=== PATIENT | female | born 1990 | race Asian ===

== ENCOUNTER 2020-11-24 00:45 | Observation (INO) | payer BC, OTHER ==
[~2020-11-24] VITALS: Ht 165.1 cm; Wt 71.2 kg
[2020-11-24] MEDS ORDERED: TEMAZEPAM 15 MG CAPSULE PO PRN (02:15)
== END 2020-11-24 08:00 | disposition home or self-care (01) ==
LOC: SPU 00:45
PROVIDERS: ADMIT Obstetrics & Gynecology; ATTEND Obstetrics & Gynecology
DX: O42.92 Full-term premature rupture of membranes, unspecified as to length of time between rupture and onset of labor (principal); O36.8130 Decreased fetal movements, third trimester, not applicable or unspecified; Z3A.37 37 weeks gestation of pregnancy
CPT/HCPCS: G0378

== ENCOUNTER 2020-12-02 10:13 | Inpatient (IN) | payer OTHER ==
[~2020-12-02] VITALS: Ht 165.1 cm; Wt 73.5 kg
[2020-12-02] MEDS ORDERED: AMPICILLIN SODIUM 2 GM VIAL ONE (11:06)
[2020-12-02] MEDS ORDERED: TERBUTALINE SULFATE 1 MG/ML VIAL SUBCUT ONE (11:15)
[2020-12-02] MEDS ORDERED: AMPICILLIN SODIUM 2 GM in NS 100 ML IV ONE (11:15)
[2020-12-02] MEDS ORDERED: LR 1,000 ML IV ONE (11:15)
[2020-12-02] MEDS ORDERED: LR 1,000 ML IV SCH (11:15)
[2020-12-02] MEDS ORDERED: OXYTOCIN/0.9 % SODIUM CHLORIDE 1,000 ML IV SCH ×2 (11:15→18:45)
[2020-12-02 11:45] LABS: BASOPHILS % (AUTO) 0.2 % (0.0-2.0); EOSINOPHILS # (AUTO) 0.1 K/uL (0.0-0.4); EOSINOPHILS % (AUTO) 0.7 % (0.0-4.0); HEMATOCRIT 36.4 % (36-48); HEMOGLOBIN 11.9 g/dL (12.0-16.0); LYMPHOCYTES # (AUTO) 1.9 K/uL (1.0-5.5); LYMPHOCYTES % (AUTO) 19.1 % (20.5-51.5); MEAN CORPUSCULAR HEMOGLOBIN 29 pg (27-31); MEAN CORPUSCULAR HGB CONC 33 % (32-36); MEAN CORPUSCULAR VOLUME 90 fL (79.0-98.0); MONOCYTES # (AUTO) 0.7 K/uL (0.0-1.0); MONOCYTES % (AUTO) 6.5 % (1.7-9.3); NEUTROPHILS # (AUTO) 7.4 K/uL (1.8-7.7); NEUTROPHILS % (AUTO) 73.5 % (40.0-70.0); PLATELET COUNT (AUTO) 241 K/uL (130-430); RED BLOOD CELL COUNT(AUTO) 4.06 MIL/uL (4.2-6.2); RED CELL DISTRIBUTION WIDTH 13.5 % (9.0-15.0); WHITE BLOOD COUNT (AUTO) 10.1 K/uL (4.8-10.8)
[2020-12-02] MEDS ORDERED: ROPIVACAINE HCL/PF 0.2% 200 ML ONE ×2 (14:13→15:11)
[2020-12-02] MEDS ORDERED: fentaNYL CITRATE/PF 100 MCG/2 ML AMP ONE ×2 (14:13→15:10)
[2020-12-02] MEDS ORDERED: AMPICILLIN SODIUM 1 GM in NS 50 ML IV SCH (15:15)
[2020-12-02] MEDS ORDERED: HYDROcodone/ACETAMIN 5-325 MG TAB (NORCO/ VICODIN) PO PRN ×2 (18:45)
[2020-12-02] MEDS ORDERED: TEMAZEPAM 15 MG CAPSULE PO PRN (18:45)
[2020-12-02] MEDS ORDERED: DERMOPLAST SPRAY TP PRN (18:45)
[2020-12-02] MEDS ORDERED: ANUSOL 1 EA SUPP.RECT (PREPARATION H) RC PRN (18:45)
[2020-12-02] MEDS ORDERED: LANOLIN 7 GM OINT. TP PRN (18:45)
[2020-12-02] MEDS ORDERED: METHYLERGONOVINE MALEATE 0.2 MG TABLET PO PRN (18:45)
[2020-12-02] MEDS ORDERED: WITCH HAZEL LEAF 1 MED.PAD MED.PAD TP PRN (18:45)
[2020-12-02] MEDS ORDERED: MEASLES,MUMPS&RUBELLA VACC/PF 12500 UNIT/0.5 ML VIAL SUBQ PRN (18:45)
[2020-12-02] MEDS ORDERED: SENNOSIDES/DOCUSATE SODIUM 1 TAB TABLET(SENOKOT-S) PO PRN (18:45)
[2020-12-02] MEDS ORDERED: ACETAMINOPHEN 325 MG TABLET PO PRN (18:45)
[2020-12-02] MEDS ORDERED: OXYTOCIN/0.9 % SODIUM CHLORIDE 1,000 ML IV ONE (18:45)
[2020-12-02] MEDS ORDERED: HYDROCORTISONE 0.5% CREAM 28.4 GM CREAM.GM. TP PRN (18:45)
[2020-12-02] MEDS ORDERED: RHO(D) IMMUNE GLOBULIN/MALTOSE 1500 UNITS/1.3 ML (WINHRO) IM PRN (18:45)
[2020-12-02] MEDS ORDERED: ONDANSETRON HCL 4 MG/2 ML VIAL IVP PRN ×2 (20:30)
[2020-12-02] MEDS: IBUPROFEN 600 MG TABLET PO SCH (23:39)
[2020-12-02] MEDS: DOCUSATE SODIUM 100 MG CAPSULE PO PRN (23:40)
[2020-12-03] MEDS: IBUPROFEN 600 MG TABLET PO SCH ×3 (05:06→18:08)
[2020-12-03] MEDS: DOCUSATE SODIUM 100 MG CAPSULE PO PRN (05:06)
[2020-12-03 07:14] LABS: HEMATOCRIT 35.5 % (36-48)
[2020-12-03 18:21] VITALS: BP_SYST 112
== END 2020-12-03 19:10 | disposition home or self-care (01) | DRG 807 ==
LOC: SPU 10:13
PROVIDERS: ADMIT Obstetrics & Gynecology; ATTEND Obstetrics & Gynecology
PROC: 10E0XZZ Delivery of Products of Conception, External Approach (ICD-10-PCS; principal; 2020-12-02)
PROC: 3E033VJ Introduction of Other Hormone into Peripheral Vein, Percutaneous Approach (ICD-10-PCS; 2020-12-02)
PROC: 3E0R3BZ Introduction of Anesthetic Agent into Spinal Canal, Percutaneous Approach (ICD-10-PCS; 2020-12-02)
PROC: 00HU33Z Insertion of Infusion Device into Spinal Canal, Percutaneous Approach (ICD-10-PCS; 2020-12-02)
DX: O69.81X0 Labor and delivery complicated by cord around neck, without compression, not applicable or unspecified (principal); Z37.0 Single live birth; Z20.822 Contact with and (suspected) exposure to COVID-19; Z3A.39 39 weeks gestation of pregnancy
CPT/HCPCS: 36415; 81002-TC; 85018-TC; 85025; 86592; 86886; 86900; 86901; J0290; J2405; J2590; J3010

== ENCOUNTER 2022-04-06 00:46 | Emergency (ER) | payer OTHER ==
[~2022-04-06] VITALS: Ht 165.1 cm; Wt 59.0 kg
--- NOTE | 2022-04-06 01:15 | NUR ---
Patient triaged and placed in waiting room. VSS and patient appears in no acute distress at this time. Accompanied by [employer]uties, awaiting available bed, and MD notified of need for MSE.
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
[2022-04-06 01:21] VITALS: BP_SYST 124
--- NOTE | 2022-04-06 01:50 | NUR ---
ER at bedside examining patient.
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
[2022-04-06] MEDS ORDERED: ACETAMINOPHEN 500 MG TABLET PO ONE (02:00)
[2022-04-06] MEDS ORDERED: DIPH-TET-PERTUS Vaccine 0.5 ML VIAL (ADACEL) I.M. ONE (02:00)
--- NOTE | 2022-04-06 02:39 | NUR ---
Patient has a laceration to back of head, R side. Dr. Pratt applied 2 darlene using sterile technique. Site cleansed with NS. No active bleeding noted. Pt tolerated well.
[2022-04-06] MEDS ORDERED: BACITRACIN 1 GM OINT TP ONE (02:42)
[2022-04-06] MEDS ORDERED: IBUP-1969 PO (02:55)
[2022-04-06] MEDS: BACITRACIN ZINC 15 GM TOPICAL OINTMENT TP SCH ×2 (02:55→03:00)
[2022-04-06 03:05] VITALS: BP_SYST 123
--- NOTE | 2022-04-06 03:05 | NUR ---
Patient given written and verbal discharge instructions and verbalizes understanding. ER MD Pratt discussed with patient the results and treatment provided. Patient in stable condition. ID arm band removed. Pt medically cleared and released to [facility]. Pain Scale 0/10. Opportunity for questions provided and answered.
[2022-04-06] MEDS ORDERED: LEVOTHYROXINE SODIUM 0.075 MG TABLET ONE (03:06)
[2022-04-06] MEDS: LEVOTHYROXINE SODIUM 0.075 MG TABLET PO SCH ×2 (03:07→07:00)
== END 2022-04-06 03:05 | disposition home or self-care (01) ==
LOC: SED 00:46
DX: S01.01XA Laceration without foreign body of scalp, initial encounter (principal); M54.2 Cervicalgia; Z79.899 Other long term (current) drug therapy; Y04.8XXA Assault by other bodily force, initial encounter; Y93.89 Activity, other specified; Y92.89 Other specified places as the place of occurrence of the external cause; Y99.8 Other external cause status
CPT/HCPCS: 90715; 99284

== ENCOUNTER 2022-04-06 14:59 | Emergency (ER) | payer OTHER ==
[~2022-04-06] VITALS: Ht 167.6 cm; Wt 52.2 kg
[~2022-04-06 14:59] MED LIST: IBUP-1969 PO
[2022-04-06 15:14] VITALS: BP_SYST 108
--- NOTE | 2022-04-06 15:20 | NUR ---
Patient to [facility] for evaluation.
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
--- NOTE | 2022-04-06 15:25 | NUR ---
ER at bedside examining patient.
[2022-04-06] MEDS ORDERED: IBUPROFEN 600 MG TABLET PO ONE (15:30)
--- NOTE | 2022-04-06 15:40 | NUR ---
Patient and [facility]'s deputy given written and verbal discharge instructions and verbalizes understanding. ER MD discussed with patient the results and treatment provided. Patient in stable condition. ID arm band removed. Rx of synthroid given. Patient educated on pain management and to follow up with PMD. Pain Scale 0/10 Opportunity for questions provided and answered. Medication side effect fact sheet provided.
[2022-04-06 15:54] VITALS: BP_SYST 108
== END 2022-04-06 15:54 ==
LOC: SED 14:59
DX: S01.01XA Laceration without foreign body of scalp, initial encounter (principal); S40.022A Contusion of left upper arm, initial encounter; S50.11XA Contusion of right forearm, initial encounter; S80.11XA Contusion of right lower leg, initial encounter; S80.12XA Contusion of left lower leg, initial encounter; Z79.899 Other long term (current) drug therapy; Y04.0XXA Assault by unarmed brawl or fight, initial encounter; Y93.89 Activity, other specified; Y92.89 Other specified places as the place of occurrence of the external cause; Y99.8 Other external cause status
CPT/HCPCS: 99283